=== PATIENT | female | born 1950 | race African-American/Black ===

== ENCOUNTER 2017-07-08 04:04 | Emergency (ER) | payer OTHER ==
[2017-07-08 04:10] VITALS: BP 140/96; PULSE 76; TEMP 98.3; BMI 25.7
[2017-07-08] MEDS ORDERED: DIPHTH,PERTUSS(ACELL),TET 0.5 ML DISP.SYRIN IM ONE (04:51)
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
== END 2017-07-08 05:08 | disposition home or self-care (01) ==
LOC: FER 04:04
PROC: 3E0234Z Introduction of Serum, Toxoid and Vaccine into Muscle, Percutaneous Approach (ICD-10-PCS; principal; 2017-07-08)
DX: S50.811A Abrasion of right forearm, initial encounter (principal); Y04.0XXA Assault by unarmed brawl or fight, initial encounter; Y93.89 Activity, other specified; Y92.239 Unspecified place in hospital as the place of occurrence of the external cause; Y99.0 Civilian activity done for income or pay
CPT/HCPCS: 90715; 99281-25

== ENCOUNTER 2020-07-25 08:11 | Emergency (ER) | payer OTHER ==
[2020-07-25] MEDS ORDERED: METOCLOPRAMIDE HCL INJECTION 10 MG/2 ML VIAL IVPB ONE (08:14)
[2020-07-25 08:15] VITALS: TEMP 97.7; BMI 25.9
[2020-07-25] MEDS ORDERED: ACETAMINOPHEN 1000 MG/100 ML VIAL (NON FORMULARY) IVPB ONE (08:18)
[2020-07-25] MEDS ORDERED: ACETAMINOPHEN INJECTION 100 ML IVPB ONE (08:27)
[2020-07-25 08:47] LABS: BASO % 0.6 % (0-2.0); EOS % 8.2 % (0-4.5); HEMATOCRIT 41.1 % (32.4-45.2); HEMOGLOBIN 13.7 GM/dl (10.7-15.3); LYMPH % 55.5 % (8-40); MCH 27.3 pg (25.7-33.7); MCHC 33.3 g/dl (32.0-36.0); MEAN CELL VOLUME 82.1 fl (80-96); MEAN PLT VOLUME 10.6 fl (7.5-11.1); MONO % 8.6 % (3.8-10.2); NEUT % 27.1 % (42.8-82.8); PLATELET COUNT 180 K/MM3 (134-434); RBC 5.01 M/mm3 (3.60-5.2); WHITE BLOOD COUNT 5.6 K/mm3 (4.0-10.8)
[2020-07-25 08:54] LABS: ALBUMIN 4.3 g/dl (3.4-5.0); BILIRUBIN,TOTAL 0.7 mg/dl (0.2-1); CALCIUM 9.3 mg/dl (8.5-10); CREATININE 1.2 mg/dl (0.55-1.3); TOT PROT 7.3 g/dl (6.4-8.2)
--- NOTE | 2020-07-25 09:23 | PDOC ---
History of Present Illness - General Chief Complaint: Headache Stated Complaint: HEADACHE AND HTN Time Seen by Provider: 07/25/20 08:13 - History of Present Illness Initial Comments: 07/25/20 09:21 69 years old with no significant past medical history presents to the emergency department with intermittent headache. Patient states she sometimes gets headaches prior to her upper respiratory infections had a little bit of a runny nose on Monday yesterday developed a headache which progressed gradually over the course of the day states it was more severe than her typical headaches denies thunderclap woke her up. Lasted several hours. Is currently asymptomatic does not have a headache at this time her blood pressure was checked here in the emergency department she was noted to be hypertensive which is new for patient. Denies photophobia denies neck stiffness denies chest pain shortness of breath nausea vomiting or diarrhea no travel Past History - Medical History Allergies/Adverse Reactions: Allergies Allergy/AdvReac Type Severity Reaction Status Date / Time No Known Allergies Allergy Verified 07/25/20 08:12 Home Medications: Ambulatory Orders Amlodipine Besylate [Norvasc -] 2.5 mg PO DAILY #7 tablet 07/25/20 COPD: No Other medical history: DENIES - Reproductive History Is Patient Now?: No - Psycho-Social/Smoking History Smoking History: Never smoked - Substance Abuse Hx (Audit-C & DAST Scrn) How often the patient has a drink containing alcohol: Never Score: In Men: 4 or > Positive; In Women: 3 or > Positive: 0 Screen Result (Pos requires Nsg. Audit-10AR): Negative In the last yr the pt used illegal drug/Rx for NonMed reason: No Score: Yes response is considered Positive: 0 Screen Result (Positive result requires Nsg. DAST-10): Negative Review of Systems - Review of Systems Comments:: 07/25/20 09:21 ROS: A complete review of 10 out of 10 review of systems is taken and is negative apart from what is previously mentioned below and in the HPI. *Physical Exam - Vital Signs Last Vital Signs Temp Pulse Resp BP Pulse Ox 97.7 F 67 16 160/106 H 100 07/25/20 08:13 07/25/20 08:13 07/25/20 08:13 07/25/20 08:13 07/25/20 08:13 - Physical Exam 07/25/20 09:21 Vitals: Triage Vital signs reviewed General Appearance: No acute distress, well nourished well developed, Head: Atraumatic, Neck: Supple; no Nucal rigidity Chest Wall: Nontender Cardiac: Regular rate and rhythym, no murmurs, no rubs, no gallops, Lungs: Clear to auscultation bilateral, good air movement bilaterally, Abdomen: Soft, non distended, normal bowel sounds, non tender to palpation Extremities: Full range of motion to all extremities, no cyanosis, clubbing, or edema Skin: Warm and dry, no rashes or lesions, no rash, no petechiae Psych: Normal mood, normal affect ED Treatment Course - LABORATORY CBC & Chemistry Diagram: 07/25/20 08:17 07/25/20 08:17 - ADDITIONAL ORDERS Additional order review: Laboratory Results 07/25/20 08:17 Sodium 136 Potassium 4.0 Chloride 104 Carbon Dioxide 26 Anion Gap 6 L BUN 21.0 H Creatinine 1.2 Est GFR (CKD-EPI)AfAm 53.78 Est GFR (CKD-EPI)NonAf 46.40 Random Glucose 114 H Calcium 9.3 Total Bilirubin 0.7 AST 27 ALT 28 Alkaline Phosphatase 53 Total Protein 7.3 Albumin 4.3 07/25/20 08:17 RBC 5.01 MCV 82.1 MCHC 33.3 RDW 14.0 MPV 10.6 Neutrophils % 27.1 L Lymphocytes % 55.5 H Monocytes % 8.6 Eosinophils % 8.2 H Basophils % 0.6 - RADIOLOGY Radiology Studies Ordered: Category Date Time Status BRAIN CTA [CT] Stat CT Scan 07/25/20 08:[address] WITHOUT CONTRAST [CT] Stat CT Scan 07/25/20 08:57 Ordered - Medications Given in the ED: ED Medications Discontinued Medications Generic Name Dose Route Start Last Admin Trade Name Freq PRN Reason Stop Dose Admin Acetaminophen 1,000 mg 07/25/20 08:18 07/25/20 08:29 Ofirmev Injection - IVPB 07/25/20 08:19 1,000 mg ONCE ONE Administration Medical Decision Making - Medical Decision Making 07/25/20 09:22 Well-appearing no apparent distress presents to the emergency department with headache yesterday worse than her usual lasting several hours now symptom-free given pain out of proportion to patient's normal headaches will obtain CT CTA to rule out bleed versus aneurysm IV Tylenol observe and reassess. 07/25/20 11:57 CT head CTA negative for acute pathology or aneurysm patient feels much better blood pressure improving since starting patient on blood pressure medication will start on low-dose amlodipine she will follow-up with her doctor on Monday or Monday [facility] test has been sent Findings, the need for follow-up and strict return instructions discussed with patient. Discharge - Discharge Information Problems reviewed: Yes Clinical Impression/Diagnosis: Headache Qualifiers: Headache type: unspecified Headache chronicity pattern: acute headache Intract ability: not intractable Qualified Code(s): R51 - Headache Hypertension Qualifiers: Hypertension type: unspecified Qualified Code(s): I10 - Essential (primary) hypertension Condition: Stable - Admission No - Additional Discharge Information Prescriptions: Amlodipine Besylate [Norvasc -] 2.5 mg PO DAILY #7 tablet - Follow up/Referral - Patient Discharge Instructions Patient Printed Discharge Instructions: DI for Headache Additional Instructions: Drink plenty of fluids. Tylenol as needed if headache returns. Take amlodipine as prescribed. Follow-up with your doctor in 1 to 2 days to discuss further blood pressure management Return to ED for any severe worsening symptoms or for any concerns. - Post Discharge Activity
[2020-07-25] MEDS ORDERED: SODIUM CHLORIDE 0.9% 1000 ML INFUS.BAG IV ONE (10:22)
[2020-07-25] MEDS ORDERED: amLODIPine BESYLATE 5 MG TABLET (FP) ONE (10:47)
[2020-07-25] MEDS ORDERED: amLODIPine BESYLATE 2.5 MG TABLET (FP) PO ONE (10:47)
[2020-07-25 11:53] VITALS: BP 130/93; PULSE 74
== END 2020-07-25 12:09 ==
LOC: FER 08:11
PROC: 3E033NZ Introduction of Analgesics, Hypnotics, Sedatives into Peripheral Vein, Percutaneous Approach (ICD-10-PCS; principal; 2020-07-25)
PROC: 3E033GC Introduction of Other Therapeutic Substance into Peripheral Vein, Percutaneous Approach (ICD-10-PCS; 2020-07-25)
DX: R51 Headache (principal)
CPT/HCPCS: 36415; 70450-TC; 70496-TC; 80053; 85025; 99285-25; J0131; Q9967; U0003